=== PATIENT | female | born 1995 | race Caucasian/White ===

== ENCOUNTER 2020-01-11 17:32 | Emergency (ER) | payer BC ==
--- NOTE | 2020-01-11 18:21 | ER Document Report ---
ED General - General Chief Complaint: Diarrhea Stated Complaint: COUGH Time Seen by Provider: 01/11/20 17:52 Mode of Arrival: Ambulatory Information source: Patient Notes: 01/11/20 17:56 - ED Nursing Note by CRISTÓBAL LINDQUIST Cortes Num: [id number] : 1995 Patient Age: 24 Patient presents to ED with c/o diarrhea since Thursday, as well as chills and a sore throat for the past 2 weeks. Patient was exposed to a positive covid person recently. Pt denies N/V. 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 Patient reports she has sore throat rhinorrhea nonproductive cough diarrhea nonbloody. She denies any mopped assist. She denies any nuchal rigidity or cephalgia. She denies any skin rash. She is here with her twin sons Elías and Giovanni. Both of the sons appear to have eye discharge and paroxysmal cough. They have rhinorrhea as well. Her 3-year-old daughter is at [facility] [place] at this time and she has diarrhea today as well. Patient has been told instructed to come to the ED because of the 2 sons with eye discharge and coronavirus potential. TRAVEL OUTSIDE OF THE [place] IN LAST 30 DAYS: No - HPI Onset: Last week Onset/Duration: Sudden, Persistent, Worse Quality of pain: Achy Severity: Mild Pain Level: 1 Associated symptoms: Nonproductive cough, Fever Exacerbated by: Coughing, Deep breathing Relieved by: Denies Similar symptoms previously: Yes Recently seen / treated by doctor: Yes - Related Data Allergies/Adverse Reactions: No Known Allergies Allergy (Verified 06/02/16 06:52) Home Medications: Avione Past Medical History - General Information source: Patient - Social History Smoking Status: Current Every Day Smoker Cigarette use (# per day): Yes Chew tobacco use (# tins/day): No Smoking Education Provided: Yes - Patient is a smokerand has a smoker's cough Frequency of alcohol use: None Drug Abuse: None Lives with: Family Family History: Reviewed & Not Pertinent Patient has suicidal ideation: No Patient has homicidal ideation: No Renal/ Medical History: Reports: Hx Ovarian Cysts. Denies: Hx Ectopic Past Surgical History: Reports: Hx Section - 2019, Hx Cholecystectomy - Immunizations Hx Diphtheria, Pertussis, Tetanus Vaccination: Yes Review of Systems - Review of Systems Constitutional: See HPI, Fever, Weakness EENT: See HPI, Throat pain Cardiovascular: No symptoms reported Respiratory: See HPI, Cough Gastrointestinal: No symptoms reported Genitourinary: No symptoms reported Female Genitourinary: No symptoms reported Musculoskeletal: No symptoms reported Skin: No symptoms reported Hematologic/Lymphatic: No symptoms reported Neurological/Psychological: No symptoms reported Physical Exam - Vital signs Vitals: Temp Pulse Resp BP Pulse Ox 98.8 F 91 16 121/87 H 97 01/11/20 17:43 01/11/20 17:43 01/11/20 17:43 01/11/20 17:43 01/11/20 17:43 Interpretation: Normal - General General appearance: Alert - HEENT Head: Normocephalic, Atraumatic Eyes: Normal Pupils: PERRL Mouth/Lips: Normal Mucous membranes: Normal Pharynx: Erythema, Tonsillar hypertrophy Neck: Normal - Respiratory Respiratory status: No respiratory distress Chest status: Nontender Breath sounds: Normal Chest palpation: Normal - Cardiovascular Rhythm: Regular - The patient has chosen to leave the facility against medical advice. The relevant issues have been reviewed and discussed with the patient and family at the bedside. At the time of this assessment there is no indication for involuntary commitment. The patient is alert, oriented, and able to express clearly their reasoning for not wanting to remain in the emergency department for further treatment. The patient is not clinically psychotic, intoxicated, and denies and suicidal ideation. Differential or suspected diagnoses based on medical screening exam: . The patient is aware of the concerning diagnoses and acknowledges understanding of the reasons for the following recommendations: The following recommendations/services were offered and refused: The followi ng risks were explained: , permanent disability, loss of function Clinical impression: Patient is competent to make decisions regarding the medical that is being offered. Heart sounds: Normal auscultation Murmur: No - Abdominal Inspection: Normal Distension: No distension Bowel sounds: Normal Tenderness: Nontender Organomegaly: No organomegaly - Rectal Hemorrhoids: Other - deferred - Genitourinary Bimanuel exam: Other - deferred - Back Back: Normal - Extremities General upper extremity: Normal inspection, Nontender, Normal color, Normal ROM, Normal temperature General lower extremity: Normal inspection, Nontender, Normal color, Normal ROM, Normal temperature, Normal weight bearing. No: Adeline's sign - Neurological Neuro grossly intact: Yes Cognition: Normal Orientation: AAOx4 Shirin Coma Scale Eye Opening: Spontaneous Hitchita Coma Scale Verbal: Oriented Shirin Coma Scale Motor: Obeys Commands Shirin Coma Scale Total: 15 Speech: Normal Motor strength normal: LUE, RUE, LLE, RLE Sensory: Normal - Psychological Associated symptoms: Normal affect - Skin Skin Temperature: Warm Skin Moisture: Dry Course - Vital Signs Vital signs: Temp Pulse Resp BP Pulse Ox 98.8 F 91 16 121/87 H 97 01/11/20 17:54 01/11/20 17:43 01/11/20 17:43 01/11/20 17:43 01/11/20 17:43 - Laboratory Result Diagrams: 01/11/20 18:49 01/11/20 18:49 Laboratory results interpreted by me: 01/11/20 18:53 Urine Protein 30 H Urine Blood SMALL H Ur Leukocyte Esterase TRACE H Critical Care Note - Critical Care Note Total time excluding time spent on procedures (mins): 60 Comments: I advised patient of pending coronavirus test and to self quarantine until this returns Discharge - Discharge Clinical Impression: Pharyngitis Qualifiers: Pharyngitis/tonsillitis etiology: unspecified etiology Qualified Code(s): J02.9 - Acute pharyngitis, unspecified URI (upper respiratory infection) Qualifiers: URI type: unspecified URI Qualified Code(s): J06.9 - Acute upper respiratory infection, unspecified Condition: Good Disposition: HOME, SELF-CARE Additional Instructions: You have pending coronavirus test and should self quarantine until these return. Take medicines as directed and wear a facemask in public and private. Take medicines as directed encourage fluids. Prescriptions: Benzonatate [Tessalon Perles 100 mg Capsule] 100 mg PO Q8HP PRN #40 capsule PRN Reason: Azithromycin [Zithromax 250 mg Tablet] 250 mg PO ASDIR PRN #6 tablet PRN Reason: Forms: Return to Work
[2020-01-11 19:15] LABS: ABSOLUTE EOSINOPHILS # (AUTO) 0.1 10^3/uL (0.0-0.6); ABSOLUTE LYMPHOCYTES (AUTO) 3.5 10^3/uL (0.5-4.7); ABSOLUTE MONOCYTES (AUTO) 0.6 10^3/uL (0.1-1.4); ABSOLUTE NEUT (AUTO) 4.5 10^3/uL (1.7-8.2); BASOPHILS % (AUTO) 0.1 % (0-2); HEMATOCRIT 39.7 % (36.0-47.0); HEMOGLOBIN 13.6 g/dL (12.0-15.5); LYMPHOCYTES % (AUTO) 40.5 % (13-45); MEAN CORPUSCULAR HEMOGLOBIN 30.7 pg (27.0-33.4); MEAN CORPUSCULAR HGB CONC 34.2 g/dL (32.0-36.0); MEAN CORPUSCULAR VOLUME 90 fl (80-97); MONOCYTES % (AUTO) 6.6 % (3-13); PLATELET COUNT 220 10^3/uL (150-450); RED BLOOD COUNT 4.43 10^6/uL (3.72-5.28); RED CELL DISTRIBUTION WIDTH 13.4 % (11.5-14.0); SEGMENTED NEUTROPHILS % (AUTO) 51.8 % (42-78); TOTAL CELLS COUNTED % (AUTO) 100 %; WHITE BLOOD COUNT 8.6 10^3/uL (4.0-10.5)
--- NOTE | 2020-01-11 19:17 | RADIOLOGY REPORT (SQ) ---
EXAM DESCRIPTION: CHEST SINGLE VIEW IMAGES COMPLETED DATE/TIME: 01/11/2020 6:41 pm REASON FOR STUDY: cough COMPARISON: None. EXAM PARAMETERS: NUMBER OF VIEWS: One view. TECHNIQUE: Single frontal radiographic view of the chest acquired. RADIATION DOSE: NA LIMITATIONS: None. FINDINGS: LUNGS AND PLEURA: No opacities, masses or pneumothorax. No pleural effusion. MEDIASTINUM AND HILAR STRUCTURES: No masses. Contour normal. HEART AND VASCULAR STRUCTURES: Heart normal in size. Normal vasculature. BONES: No acute findings. HARDWARE: None in the chest. OTHER: No other significant finding. IMPRESSION: NO ACUTE RADIOGRAPHIC FINDING IN THE CHEST. TECHNICAL DOCUMENTATION: JOB ID: [id number] 2010 [employer]- All Rights Reserved Reading location - IP/workstation name: [email or web address]
[2020-01-11 19:45] LABS: APPEARANCE,URINE SLIGHTLY-CLOUDY; BILIRUBIN,URINE NEGATIVE (NEGATIVE); COLOR,URINE YELLOW; GLUCOSE, URINE NEGATIVE (NEGATIVE); KETONES,URINE NEGATIVE (NEGATIVE); LEUKOCYTE ESTERASE,URINE TRACE (NEGATIVE); NITRITE,URINE NEGATIVE (NEGATIVE); PROTEIN,URINE 30 mg/dL (NEGATIVE); UROBILINOGEN,URINE NEGATIVE mg/dL (<2.0)
[2020-01-11 19:50] LABS: ALBUMIN 4.8 g/dL (3.5-5.0); ALKALINE PHOSPHATASE 65 U/L (38-126); ANION GAP 7 (5-19); ASPARTATE AMINO TRANSFERASE 29 U/L (14-36); BILIRUBIN,TOTAL 0.5 mg/dL (0.2-1.3); BLOOD UREA NITROGEN 10 mg/dL (7-20); CALCIUM 9.4 mg/dL (8.4-10.2); CARBON DIOXIDE 25 mmol/L (22-30); CHLORIDE 106 mmol/L (98-107); GLUCOSE 89 mg/dL (75-110); POTASSIUM 4.3 mmol/L (3.6-5.0); TOTAL PROTEIN 8.2 g/dL (6.3-8.2)
[2020-01-11] MEDS ORDERED: AZITHROMYCIN 250 MG TABLET PO ONE (20:50)
[2020-01-11 21:26] VITALS: BP 113/71
== END 2020-01-11 22:15 | disposition home or self-care (01) ==
LOC: ER 17:32
DX: J06.9 Acute upper respiratory infection, unspecified (principal); R19.7 Diarrhea, unspecified; J02.9 Acute pharyngitis, unspecified; J35.1 Hypertrophy of tonsils; J34.89 Other specified disorders of nose and nasal sinuses; R50.9 Fever, unspecified; R53.1 Weakness; F17.218 Nicotine dependence, cigarettes, with other nicotine-induced disorders; R05 Cough; Z79.899 Other long term (current) drug therapy; Z20.828 Contact with and (suspected) exposure to other viral communicable diseases
CPT/HCPCS: 99285; 36415; 87070; 87880; 85025; 87635; 81025; 80053; 81001; 71045; C9803

== ENCOUNTER 2020-01-27 12:39 | Emergency (ER) | payer BC ==
[2020-01-27 12:44] VITALS: BP 135/83
--- NOTE | 2020-01-27 12:51 | ER Document Report ---
ED Medical Screen (RME) - General Chief Complaint: Nausea/Vomiting Stated Complaint: NAUSEA,VOMITING,ABDOMINAL PAIN Time Seen by Provider: 01/27/20 12:40 Mode of Arrival: Ambulatory Information source: Patient Notes: 24-year-old female presented to ED for right pelvic pain. She states she went to the [facility] because that is where she goes for her ovarian cyst. This ovarian cyst is much more painful than her normal so the [facility] sent her to the emergency room to have her evaluated for a ruptured ectopic because she has not had a test as yet. She is due soon for her menstrual cycle. She states she does smoke 1/2 pack a day does not drink or use any illicit drugs. She has had a cholecystectomy. She has a history of ovarian cyst and she has had a cystoscopy. Patient is alert oriented respirations regular nonlabored speaking in full sentences. She has gone straight to ultrasound and then she will have a blood and urine done. I have greeted and performed a rapid initial assessment of this patient. A comprehensive ED assessment and evaluation of the patient, analysis of test results and completion of medical decision making process will be conducted by an additional ED providers. TRAVEL OUTSIDE OF THE [place] IN LAST 30 DAYS: No - Related Data Allergies/Adverse Reactions: No Known Allergies Allergy (Verified 06/02/16 06:52) Past Medical History Renal/ Medical History: Reports: Hx Ovarian Cysts. Denies: Hx Ectopic Past Surgical History: Reports: Hx Section - 2019, Hx Cholecystectomy - Immunizations Hx Diphtheria, Pertussis, Tetanus Vaccination: Yes Physical Exam - Vital signs Vitals: Temp Pulse Resp BP Pulse Ox 98.7 F 99 18 135/83 H 100 01/27/20 12:42 01/27/20 12:42 01/27/20 12:42 01/27/20 12:42 01/27/20 12:42 Course - Vital Signs Vital signs: Temp Pulse Resp BP Pulse Ox 98.7 F 99 18 135/83 H 100 01/27/20 12:42 01/27/20 12:42 01/27/20 12:42 01/27/20 12:42 01/27/20 12:42
[2020-01-27 13:24] LABS: ABSOLUTE EOSINOPHILS # (AUTO) 0.1 10^3/uL (0.0-0.6); ABSOLUTE LYMPHOCYTES (AUTO) 2.6 10^3/uL (0.5-4.7); ABSOLUTE MONOCYTES (AUTO) 0.4 10^3/uL (0.1-1.4); ABSOLUTE NEUT (AUTO) 4.6 10^3/uL (1.7-8.2); BASOPHILS % (AUTO) 0.2 % (0-2); EOSINOPHILS % (AUTO) 1.3 % (0-6); HEMATOCRIT 37.4 % (36.0-47.0); HEMOGLOBIN 12.8 g/dL (12.0-15.5); LYMPHOCYTES % (AUTO) 33.9 % (13-45); MEAN CORPUSCULAR HEMOGLOBIN 30.8 pg (27.0-33.4); MEAN CORPUSCULAR HGB CONC 34.3 g/dL (32.0-36.0); MEAN CORPUSCULAR VOLUME 90 fl (80-97); MONOCYTES % (AUTO) 5.3 % (3-13); PLATELET COUNT 227 10^3/uL (150-450); RED BLOOD COUNT 4.17 10^6/uL (3.72-5.28); RED CELL DISTRIBUTION WIDTH 13.9 % (11.5-14.0); SEGMENTED NEUTROPHILS % (AUTO) 59.3 % (42-78); TOTAL CELLS COUNTED % (AUTO) 100 %; WHITE BLOOD COUNT 7.7 10^3/uL (4.0-10.5)
[2020-01-27 13:31] LABS: APPEARANCE,URINE CLOUDY; BILIRUBIN,URINE NEGATIVE (NEGATIVE); GLUCOSE, URINE NEGATIVE (NEGATIVE); KETONES,URINE NEGATIVE (NEGATIVE); LEUKOCYTE ESTERASE,URINE MODERATE (NEGATIVE); NITRITE,URINE NEGATIVE (NEGATIVE); PROTEIN,URINE 30 mg/dL (NEGATIVE); URINE SPECIFIC GRAVITY 1.029; UROBILINOGEN,URINE NEGATIVE mg/dL (<2.0)
[2020-01-27 13:32] LABS: COLOR,URINE YELLOW
[2020-01-27 13:42] LABS: ALBUMIN 4.3 g/dL (3.5-5.0); ALKALINE PHOSPHATASE 54 U/L (38-126); ANION GAP 8 (5-19); ASPARTATE AMINO TRANSFERASE 21 U/L (14-36); BILIRUBIN,TOTAL 0.4 mg/dL (0.2-1.3); BLOOD UREA NITROGEN 6 mg/dL (7-20); CALCIUM 9.2 mg/dL (8.4-10.2); CARBON DIOXIDE 24 mmol/L (22-30); CHLORIDE 105 mmol/L (98-107); GLUCOSE 90 mg/dL (75-110); POTASSIUM 4.2 mmol/L (3.6-5.0); TOTAL PROTEIN 7.6 g/dL (6.3-8.2)
--- NOTE | 2020-01-27 14:12 | RADIOLOGY REPORT (SQ) ---
EXAM DESCRIPTION: U/S NON OB PEL TV W/DOPPLER IMAGES COMPLETED DATE/TIME: 01/27/2020 2:02 pm REASON FOR STUDY: Symptoms consistent with ectopic has not done preg COMPARISON: None. TECHNIQUE: Dynamic and static grayscale images acquired of the pelvis via transvaginal approach and recorded on PACS. Additional selected color Doppler and spectral images recorded. LIMITATIONS: None. FINDINGS: UTERUS: Contour normal. No mass. ENDOMETRIAL STRIPE: No focal or generalized thickening. No masses. CERVIX: No nabothian cysts. RIGHT OVARY AND DOPPLER: Normal size. No worrisome masses. Normal arterial vascular flow without evid ence for torsion. LEFT OVARY AND DOPPLER: Ovary not visualized due to poor acoustic window. FREE FLUID: None noted. OTHER: No other significant finding. MEASUREMENTS: UTERUS: 3.0 x 3.8 x 7.8 cm. ENDOMETRIAL STRIPE: 5 mm. RIGHT OVARY: 1.1 x 1.4 x 2.4 cm. LEFT OVARY: Not visualized. IMPRESSION: LEFT OVARY NOT VISUALIZED DUE TO POOR ACOUSTIC WINDOW. OTHERWISE NORMAL TRANSVAGINAL PE LVIC ULTRASOUND. TECHNICAL DOCUMENTATION: JOB ID: [id number] [employer] All Rights Reserved Rev-11/20 Reading location - IP/workstation name: [email or web address]
--- NOTE | 2020-01-27 15:12 | ER Document Report ---
ED General - General Chief Complaint: Pelvic Pain Stated Complaint: NAUSEA,VOMITING,ABDOMINAL PAIN Time Seen by Provider: 01/27/20 12:40 Mode of Arrival: Ambulatory Notes: Patient is a 24-year-old white female with a history of right ovarian cyst in the past with prior cyst removal by [facility] who presents today with a chief complaint of pelvic pain, right lower quadrant pain and right back pain. She states this began yesterday. States it initially felt as though she was having some cramping in relation to starting her menstrual cycle next week which she reports is normal. She states that she had some scant early bleeding but reports that this pain is more severe than prior pains from her previous ovarian cyst. She called her [facility] who felt that this was worrisome for ectopic. The patient states that she is sure she is not but her OB told her to be better to come here and have everything evaluated in one place. She denies any vaginal discharge. Denies any urinary complaints but admits to having a "kinked urethra". States that she is prone to urinary tract infections. She also admits to having a chronic lower back injury with chronic lower back pain. She states this pain is stabbing in nature. Also reports of chronic sciatica on the right side. She states she has more tenderness than normal to the right lower back. Denies any visible blood in urine. Denies any other prior abdominal surgeries. No fevers. TRAVEL OUTSIDE OF THE [place] IN LAST 30 DAYS: No - Related Data Allergies/Adverse Reactions: No Known Allergies Allergy (Verified 06/02/16 06:52) Past Medical History - General Information source: Patient - Social History Smoking Status: Current Every Day Smoker Chew tobacco use (# tins/day): No Frequency of alcohol use: None Drug Abuse: None Family History: Reviewed & Not Pertinent Patient has homicidal ideation: No Renal/ Medical History: Reports: Hx Ovarian Cysts. Denies: Hx Ectopic Past Surgical History: Reports: Hx Section - 2019, Hx Cholecystectomy - Immunizations Hx Diphtheria, Pertussis, Tetanus Vaccination: Yes Review of Systems - Review of Systems Notes: As per HPI otherwise negative Physical Exam - Vital signs Vitals: Temp Pulse Resp BP Pulse Ox 98.7 F 99 18 135/83 H 100 01/27/20 12:42 01/27/20 12:42 01/27/20 12:42 01/27/20 12:42 01/27/20 12:42 - General General appearance: Appears well, Alert In distress: None - Respiratory Respiratory status: No respiratory distress Chest status: Nontender Breath sounds: Normal Chest palpation: Normal - Cardiovascular Rhythm: Regular Heart sounds: Normal auscultation - Abdominal Inspection: Normal Distension: No distension Bowel sounds: Normal Tenderness: Tender - Right upper quadrant and right lower quadrant, Other - Status post lap meet - Back Back: Tender - Tender to palpation right lower lumbar region. Normal straight leg raise bilaterally. 2+ DP/PT bilaterally. Negative obturator and psoas. - Neurological Neuro grossly intact: Yes Cognition: Normal Orientation: AAOx4 - Psychological Associated symptoms: Normal affect, Normal mood - Skin Skin Temperature: Warm Skin Moisture: Dry Skin Color: Normal Course - Re-evaluation Re-evalutation: 01/27/20 15:11 Ultrasound was equivocal for the side the patient's having symptoms, the right ovary could not be visualized. The left appeared normal per radiologist. Her lab work is largely unremarkable and her hCG was negative. Will obtain CT scan for further evaluation of patient's presentation. 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 She states that the Toradol did not help much with the pain however she notes that she has chronic issues with pain and has tried several medications including neuroleptics, opioids and SNRIs without any significant improvement. There is no acute emergent findings found here today on work-up to indicate further stay in the emergency department however the patient also notes that she can no longer stay for further pain management or care. We will treat her UTI outpatient she will call her doctor on Thursday for continued care management. She is aware that she is free to return here any time to continue her care. Counseled her at length regarding the importance of outpatient follow-up and advised that she return here or any ER immediately with any new, persistent or worsening symptoms. She verbalized understood and agreed. - Vital Signs Vital signs: Temp Pulse Resp BP Pulse Ox 98.7 F 99 18 135/83 H 100 01/27/20 12:42 01/27/20 12:42 01/27/20 12:42 01/27/20 12:42 01/27/20 12:42 - Laboratory Result Diagrams: 01/27/20 13:09 01/27/20 13:09 Laboratory results interpreted by me: 01/27/20 01/27/20 13:09 13:09 BUN 6 L Urine Protein 30 H Urine Blood MODERATE H Ur Leukocyte Esterase MODERATE H Discharge - Discharge Clinical Impression: Pelvic pain UTI (urinary tract infection) Qualifiers: Urinary tract infection type: site unspecified Hematuria presence: with hematuria Qualified Code(s): N39.0 - Urinary tract infection, site not specified; R31.9 - Hematuria, unspecified Condition: Stable Disposition: HOME, SELF-CARE Instructions: Urinary Tract Infection ([facility]), Pelvic Pain ([facility]) Additional Instructions: Follow-up with your regular doctor in 2 to 3 days for reevaluation. Return here or any ER immediately with any new, persistent or worsening symptoms. Prescriptions: Sulfamethoxazole/Trimethoprim [Bactrim Ds Tablet] 1 each PO BID #20 tablet
--- NOTE | 2020-01-27 15:39 | RADIOLOGY REPORT (SQ) ---
EXAM DESCRIPTION: CT ABD/PELVIS WITH IV ONLY IMAGES COMPLETED DATE/TIME: 01/27/2020 3:27 pm REASON FOR STUDY: RLQ pain COMPARISON: None. TECHNIQUE: CT scan of the abdomen and pelvis performed using helical scanning technique with dynamic intravenous contrast injection. No oral contrast. Images reviewed with lung, soft tissue, and bone windows. Reconstructed coronal and sagittal MPR images reviewed. Delayed images for evaluation of the urinary system also acquired. All images stored on PACS. All CT scanners at this facility use dose modulation, iterative reconstruction, and/or weight based d osing when appropriate to reduce radiation dose to as low as reasonably achievable (ALARA). [facility]: Dose Right [facility]: CareDose [facility]: Dose Right [facility]: Teradose 4D [facility]: Broadcast Grade [employer] Graphics Display System CONTRAST TYPE AND DOSE: contrast/concentration: Isovue 350.00 mmol/ml; Total Contrast Delivered: 98. 0 ml; Total Saline Delivered: 75.8 ml RENAL FUNCTION: BUN 6 creatinine 0.64. RADIATION DOSE: CT Rad equipment meets quality standard of care and radiation dose reduction techniq ues were employed. CTDIvol: 7.9 - 11.1 mGy. DLP: 1161 mGy-cm.. LIMITATIONS: None. FINDINGS: LOWER CHEST: No significant findings. No nodules or infiltrates. LIVER: Normal size. No masses. No dilated ducts. SPLEEN: Normal size. No focal lesions. PANCREAS: No masses. No significant calcifications. No adjacent inflammation or peripancreatic fluid collections. Pancreatic duct not dilated. GALLBLADDER: Surgically absent. ADRENAL GLANDS: No significant masses or asymmetry. RIGHT KIDNEY AND URETER: No solid masses. No significant calcifications. No hydronephrosis or hyd roureter. LEFT KIDNEY AND URETER: No solid masses. No significant calcifications. No hydronephrosis or hydr oureter. AORTA AND VESSELS: No aneurysm. No dissection. Renal arteries, SMA, celiac without stenosis. RETROPERITONEUM: No retroperitoneal adenopathy, hemorrhage or masses. BOWEL AND PERITONEAL CAVITY: No masses or inflammatory changes. No free fluid or peritoneal masses. APPENDIX: Normal. PELVIS: No mass. No free fluid. Normal bladder. ABDOMINAL WALL: No masses. No hernias. BONES: No significant or acute findings. OTHER: No other significant finding. IMPRESSION: NO SIGNIFICANT OR ACUTE FINDING IN THE ABDOMEN OR PELVIS ON CT SCAN WITH IV CONTRAST. TECHNICAL DOCUMENTATION: JOB ID: [id number] Quality ID # [id number]: Final reports with documentation of one or more dose reduction techniques (e.g., Au tomated exposure control, adjustment of the mA and/or kV according to patient size, use of iterative reconstruction technique) 2010 [employer]- All Rights Reserved Reading location - IP/workstation name: [email or web address]
[2020-01-27] MEDS ORDERED: CEFTRIAXONE 1 GM/D5W RTU 1 GM/50 ML RTUPB IV ONE (16:25)
[2020-01-27] MEDS ORDERED: NORMAL SALINE 500 ML IV ONE (16:29)
[2020-01-27] MEDS ORDERED: KETOROLAC TROMETHAMINE INJ/PF 30 MG/1 ML SDV IV ONE (16:29)
== END 2020-01-27 18:06 | disposition home or self-care (01) ==
LOC: ER 12:39
DX: N39.0 Urinary tract infection, site not specified (principal); R31.9 Hematuria, unspecified; R10.2 Pelvic and perineal pain; R10.11 Right upper quadrant pain; R10.31 Right lower quadrant pain; R11.2 Nausea with vomiting, unspecified; M54.9 Dorsalgia, unspecified; M54.5 Low back pain; F17.200 Nicotine dependence, unspecified, uncomplicated; Z98.890 Other specified postprocedural states
CPT/HCPCS: 99284; 96375; 96365; 36415; 84702; 85025; 80053; 81001; 76830; 93976; 74177; J1885; J7040; J0696

== ENCOUNTER 2020-02-01 11:41 | Emergency (ER) | payer BC ==
--- NOTE | 2020-02-01 11:51 | ER Document Report ---
ED Medical Screen (RME) - General Chief Complaint: Flank Pain Stated Complaint: RIGHT FLANK PAIN Time Seen by Provider: 02/01/20 11:50 Notes: This patient is a returned from a visit 3 days ago she has continued right lower quadrant pain she had a transvaginal ultrasound CAT scan with which were negative at that point of time but she still has discomfort right lower abdomen TRAVEL OUTSIDE OF THE [place] IN LAST 30 DAYS: No - Related Data Allergies/Adverse Reactions: No Known Allergies Allergy (Verified 06/02/16 06:52) Past Medical History Renal/ Medical History: Reports: Hx Ovarian Cysts. Denies: Hx Ectopic Past Surgical History: Reports: Hx Section - 2019, Hx Cholecystectomy - Immunizations Hx Diphtheria, Pertussis, Tetanus Vaccination: Yes Physical Exam - Vital signs Vitals: Temp Pulse Resp BP Pulse Ox 98.6 F 81 18 106/79 99 02/01/20 11:45 02/01/20 11:45 02/01/20 11:45 02/01/20 11:45 02/01/20 11:45 Course - Vital Signs Vital signs: Temp Pulse Resp BP Pulse Ox 98.6 F 81 18 106/79 99 02/01/20 11:45 02/01/20 11:45 02/01/20 11:45 02/01/20 11:45 02/01/20 11:45
[2020-02-01 12:21] LABS: ABSOLUTE EOSINOPHILS # (AUTO) 0.1 10^3/uL (0.0-0.6); ABSOLUTE LYMPHOCYTES (AUTO) 2.1 10^3/uL (0.5-4.7); ABSOLUTE MONOCYTES (AUTO) 0.5 10^3/uL (0.1-1.4); ABSOLUTE NEUT (AUTO) 3.9 10^3/uL (1.7-8.2); BASOPHILS % (AUTO) 0.2 % (0-2); EOSINOPHILS % (AUTO) 1.7 % (0-6); HEMATOCRIT 40.9 % (36.0-47.0); HEMOGLOBIN 13.9 g/dL (12.0-15.5); LYMPHOCYTES % (AUTO) 32.2 % (13-45); MEAN CORPUSCULAR HEMOGLOBIN 30.6 pg (27.0-33.4); MEAN CORPUSCULAR HGB CONC 33.8 g/dL (32.0-36.0); MEAN CORPUSCULAR VOLUME 90 fl (80-97); MONOCYTES % (AUTO) 7.1 % (3-13); PLATELET COUNT 243 10^3/uL (150-450); RED BLOOD COUNT 4.53 10^6/uL (3.72-5.28); RED CELL DISTRIBUTION WIDTH 14.3 % (11.5-14.0); SEGMENTED NEUTROPHILS % (AUTO) 58.8 % (42-78); TOTAL CELLS COUNTED % (AUTO) 100 %; WHITE BLOOD COUNT 6.7 10^3/uL (4.0-10.5)
[2020-02-01 12:29] LABS: APPEARANCE,URINE SLIGHTLY-CLOUDY; BILIRUBIN,URINE NEGATIVE (NEGATIVE); COLOR,URINE YELLOW; GLUCOSE, URINE NEGATIVE (NEGATIVE); KETONES,URINE NEGATIVE (NEGATIVE); LEUKOCYTE ESTERASE,URINE SMALL (NEGATIVE); NITRITE,URINE NEGATIVE (NEGATIVE); PROTEIN,URINE NEGATIVE (NEGATIVE); URINE SPECIFIC GRAVITY 1.021; UROBILINOGEN,URINE NEGATIVE mg/dL (<2.0)
[2020-02-01 12:37] LABS: ALBUMIN 4.8 g/dL (3.5-5.0); ALKALINE PHOSPHATASE 49 U/L (38-126); ANION GAP 9 (5-19); ASPARTATE AMINO TRANSFERASE 21 U/L (14-36); BILIRUBIN,TOTAL 0.6 mg/dL (0.2-1.3); BLOOD UREA NITROGEN 7 mg/dL (7-20); CALCIUM 9.8 mg/dL (8.4-10.2); CARBON DIOXIDE 24 mmol/L (22-30); CHLORIDE 105 mmol/L (98-107); GLUCOSE 88 mg/dL (75-110); POTASSIUM 4.9 mmol/L (3.6-5.0); TOTAL PROTEIN 8.2 g/dL (6.3-8.2)
[2020-02-01 13:39] VITALS: BP 108/70
== END 2020-02-01 13:37 | disposition left against medical advice (07) ==
LOC: ER 11:41
DX: Z53.20 Procedure and treatment not carried out because of patient's decision for unspecified reasons (principal); R10.31 Right lower quadrant pain
CPT/HCPCS: 36415; 80053; 81001; 83690; 85025; 99281

== ENCOUNTER 2020-04-04 21:11 | Emergency (ER) | payer BC ==
[2020-04-04 21:35] VITALS: BP 115/81
[2020-04-04] MEDS ORDERED: METHYLPREDNISOLONE INJ 125 MG/2 ML SDV IM ONE (22:45)
[2020-04-04] MEDS ORDERED: ACETAMINOPHEN 325 MG TABLET PO ONE (22:45)
--- NOTE | 2020-04-04 23:42 | RADIOLOGY REPORT (SQ) ---
EXAM DESCRIPTION: XR FINGERS COMPLETED DATE/TME: 04/04/2020 22:45 CLINICAL HISTORY: 24 years, Female, right thumb pain COMPARISON: None. NUMBER OF VIEWS: 3 TECHNIQUE: 3 views right thumb LIMITATIONS: None. FINDINGS: Negative for fracture or dislocation. Soft tissues are unremarkable IMPRESSION: Negative exam copyright 2011 [employer]- All Rights Reserved
--- NOTE | 2020-04-04 23:55 | ER Document Report ---
ED Medical Screen (RME) - General Chief Complaint: Finger Injury Time Seen by Provider: 04/04/20 22:39 Mode of Arrival: Ambulatory Information source: Patient Notes: HPI; 24-year-old female presents to the emergency room with sudden onset of right thumb itching while walking her dog earlier this evening. She states she applied some hydrocortisone cream without relief. She then started noticed some erythema and swelling to the thumb. Tried taking Benadryl without relief. Does not recall any injury while walking her dog. Patient states she did not notice any possible bites or stings to her thumb. Patient is right-handed. PE: Alert and oriented x3. Mild distress noted. Lungs: Clear to auscultation without rales, rhonchi, wheezes. Heart: Regular rate rhythm without murmurs, rubs, gallops. There is erythema noted at the base of the right thumb with no obvious puncture wounds noted. There are some slightly raised vesicles that are warm and tender to palpation without no active discharge or draining noted. Full range of motion without difficulty. Positive right radial pulse. Capillary refill less than 3 seconds. I have greeted and performed a rapid initial assessment of this patient. A comp rehensive ED assessment and evaluation of the patient, analysis of test results and completion of the medical decision making process will be conducted by additional ED providers. I have specifically instructed the patient or family members with the patient to immediately return to any nursing staff should anything change in the patient's condition or with their chief complaint. TRAVEL OUTSIDE OF THE [place] IN LAST 30 DAYS: No - Related Data Allergies/Adverse Reactions: No Known Allergies Allergy (Verified 06/02/16 06:52) Past Medical History Renal/ Medical History: Reports: Hx Ovarian Cysts. Denies: Hx Ectopic Past Surgical History: Reports: Hx Section - 2019, Hx Cholecystectomy - Immunizations Hx Diphtheria, Pertussis, Tetanus Vaccination: Yes Physical Exam - Vital signs Vitals: Temp Pulse Resp BP Pulse Ox 98.2 F 90 16 115/81 98 04/04/20 21:34 04/04/20 21:34 04/04/20 21:34 04/04/20 21:34 04/04/20 21:34 Course - Vital Signs Vital signs: Temp Pulse Resp BP Pulse Ox 98.2 F 90 16 115/81 98 04/04/20 21:34 04/04/20 21:34 04/04/20 21:34 04/04/20 21:34 04/04/20 21:34
== END 2020-04-05 01:00 | disposition left against medical advice (07) ==
LOC: ER 21:11
DX: Z53.20 Procedure and treatment not carried out because of patient's decision for unspecified reasons (principal); M79.644 Pain in right finger(s); M79.89 Other specified soft tissue disorders
CPT/HCPCS: 99281; 96372; 73140; J2930

== ENCOUNTER 2020-04-05 09:39 | Emergency (ER) | payer BC ==
--- NOTE | 2020-04-05 10:20 | ER Document Report ---
ED General - General Chief Complaint: Numbness Stated Complaint: ARM NUMBNESS Time Seen by Provider: 04/05/20 10:19 Primary Care Provider: [facility] [Provider Group] - Follow up as needed TRAVEL OUTSIDE OF THE [place] IN LAST 30 DAYS: No - HPI Notes: Patient is a 24-year-old female who presents with chest tightness and extremity numbness and tingling that began earlier this morning at 7 AM. Patient was seen last night in the ED for right thumb swelling. Patient left AMA before her x- ray had resulted. X-ray was negative with no signs of fracture or dislocation. Patient reports numbness from her hands extending to her elbows bilaterally and tingling to her bilateral thighs. She endorses an improvement in her right thumb pain and swelling after receiving a steroid injection yesterday. She reports right temporal headache, but denies shortness of breath, nausea, vomiting, abdominal pain, fever, diarrhea, and dysuria. Patient has a hx of panic attacks but states they are usually much worse than her current symptoms. Her last panic attack was four days ago. She normally is on anxiety medication but has not had a refill as she has not seen primary care in over a year. Patient has an P[facility] appointment [facility] on April 24. She is a current everyday smoker who smokes less than 0.5 ppd. She denies alcohol and recreational drug use. She has a hx of right sided sciatica, L5 disc disease and . - Related Data Allergies/Adverse Reactions: meloxicam [From Mobic] Allergy (Verified 04/05/20 09:56) Anaphylaxis Past Medical History - General Information source: Patient - Social History Smoking Status: Current Every Day Smoker Chew tobacco use (# tins/day): No Frequency of alcohol use: None Drug Abuse: None Family History: Reviewed & Not Pertinent Renal/ Medical History: Reports: Hx Ovarian Cysts. Denies: Hx Ectopic Past Surgical History: Reports: Hx Section - 2019, Hx Cholecystectomy - Immunizations Hx Diphtheria, Pertussis, Tetanus Vaccination: Yes Review of Systems - Review of Systems Constitutional: No symptoms reported EENT: No symptoms reported Cardiovascular: See HPI Respiratory: No symptoms reported Gastrointestinal: No symptoms reported Genitourinary: No symptoms reported Female Genitourinary: No symptoms reported Musculoskeletal: No symptoms reported Skin: No symptoms reported Hematologic/Lymphatic: No symptoms reported Neurological/Psychological: See HPI Physical Exam - Vital signs Vitals: Temp Pulse Resp BP Pulse Ox 98.1 F 105 H 18 117/80 96 04/05/20 09:47 04/05/20 09:47 04/05/20 09:47 04/05/20 09:47 04/05/20 09:47 - Notes Notes: PHYSICAL EXAMINATION: VITALS: Vitals reviewed and within normal limits. GENERAL: Well-appearing, well-nourished and in no acute distress. HEAD: Atraumatic, normocephalic. EYES: Pupils equal round and reactive to light, extraocular movements intact, sclera anicteric, conjunctiva are normal. ENT: nares patent, oropharynx clear without exudates. Moist mucous membranes. NECK: Normal range of motion, supple without lymphadenopathy. LUNGS: Breath sounds clear to auscultation bilaterally and equal. No wheezes rales or rhonchi. HEART: Regular rate and rhythm without murmurs. ABDOMEN: Soft, nontender, normoactive bowel sounds. No guarding, no rebound. No masses appreciated. EXTREMITIES: Right thumb minimally swollen with no erythema. Tender to palpation with ROM limited secondary to pain. Normal range of motion, no pitting or edema of all other extremities. No cyanosis. NEUROLOGICAL: No focal neurological deficits. Moves all extremities sp ontaneously and on command. Sharp and dull sensation intact to BUE and BLE. Subjective decreased sensation to the bilateral hands and thighs. PSYCH: Normal mood, normal affect. SKIN: Warm, Dry, normal turgor, no rashes or lesions noted. Course - Re-evaluation Re-evalutation: Patient is a 24-year-old female with a hx of anxiety and panic attacks who presents with chest tightness and extremity numbness and tingling that began earlier this morning at 7 AM. Vital signs are within normal limits. On exam, sensation is intact to sharp and dull touch in her bilateral upper and lower extremities. Subjective decreased sensation to her bilateral hands and thighs. Right thumb is minimally swollen with no erythema or cellulitic changes. Cardiac work-up negative which included a normal EKG and negative troponin. TSH low at 0.14. Glucose of 159. UA shows elevated glucose >500, protein 30, ketones 20, and small blood. Elevated glucose and serum and urine concerning, but consistent with steroid injection she received yesterday in the ED. I will order a hemoglobin A1c and contact the patient if abnormal. Work-up consistent with TSH deficiency and possible hyperthyroidism. I discussed the work-up with the patient and she reports a history of hyperthyroidism. She states that she was diagnosed over a year and a half ago and was told she had a mass. It was determined to be noncancerous, but no surgery or further treatment was done. Patient states she has not been seen by primary Care in over a year but has an appointment at the [facility] in 3 weeks. Patient will be discharged home with instructions to follow-up with her primary care at her scheduled appointment concerning her TSH deficiency, as well as, her anxiety medication slightly to be refilled. Detailed return precautions given. Patient is in agreement with plan. - Vital Signs Vital signs: Temp Pulse Resp BP Pulse Ox 98.1 F 78 15 117/74 96 04/05/20 09:47 04/05/20 13:00 04/05/20 13:01 04/05/20 13:00 04/05/20 13:01 - Laboratory Result Diagrams: 04/05/20 11:07 04/05/20 11:07 Laboratory results interpreted by me: 04/05/20 04/05/20 04/05/20 10:54 11:07 11:07 Lymph % (Auto) 7.7 L Cook % (Auto) 1.0 L Seg Neutrophils % 91.3 H Glucose 159 H TSH Urine Protein 30 H Urine Glucose (UA) >=500 H Urine Ketones 20 H Urine Blood SMALL H 04/05/20 11:07 Lymph % (Auto) Cook % (Auto) Seg Neutrophils % Glucose TSH 0.14 L Urine Protein Urine Glucose (UA) Urine Ketones Urine Blood - EKG Interpretation by Me Additional EKG results interpreted by me: Sinus rhythm with a rate of 72. QTc 443. Normal axis. No T wave inversions or ST segment changes in consecutive leads. Discharge - Discharge Clinical Impression: TSH (thyroid-stimulating hormone deficiency), Glycosuria Chest pain Qualifiers: Chest pain type: unspecified Qualified Code(s): R07.9 - Chest pain, unspecified Condition: Stable Disposition: HOME, SELF-CARE Additional Instructions: Hyperthyroidism The thyroid gland is found in the front of the neck. It produces thyroid hormone. Thyroid hormone regulates the metabolism. Hyperthyroidism means the gland is producing too much thyroid hormone. This "turns up the thermostat" too high, causing weight loss, nervousness, rapid heartbeat, and weakness. Unless it's caused by taking thyroid pills, hyperthyroidism must be investigated. The problem may be in the pituitary gland or the thyroid gland itself. Medication can control the symptoms while long-term treatment is begun. The exact treatment depends on the cause of your hyperthyroidism and on its severity. Contact the doctor or return if you change for the worse -- for example, palpitations, severe nervousness, chest pain, shortness of breath, worsening weakness or lightheadedness. Referrals: [facility] [Provider Group] - Follow up as needed
--- NOTE | 2020-04-05 11:17 | RADIOLOGY REPORT (SQ) ---
EXAM DESCRIPTION: CHEST SINGLE VIEW IMAGES COMPLETED DATE/TIME: 04/05/2020 11:07 am REASON FOR STUDY: chest tightness COMPARISON: 01/11/2020 EXAM PARAMETERS: NUMBER OF VIEWS: One view. TECHNIQUE: Single frontal radiographic view of the chest acquired. RADIATION DOSE: NA LIMITATIONS: None. FINDINGS: LUNGS AND PLEURA: No opacities, masses or pneumothorax. No pleural effusion. MEDIASTINUM AND HILAR STRUCTURES: No masses. Contour normal. HEART AND VASCULAR STRUCTURES: Heart normal in size. Normal vasculature. BONES: No acute findings. HARDWARE: None in the chest. OTHER: No other significant finding. IMPRESSION: NO ACUTE RADIOGRAPHIC FINDING IN THE CHEST. TECHNICAL DOCUMENTATION: JOB ID: [id number] 2010 [employer]- All Rights Reserved Reading location - IP/workstation name: [email or web address]
[2020-04-05 11:23] LABS: ABSOLUTE LYMPHOCYTES (AUTO) 0.6 10^3/uL (0.5-4.7); ABSOLUTE MONOCYTES (AUTO) 0.1 10^3/uL (0.1-1.4); ABSOLUTE NEUT (AUTO) 7.2 10^3/uL (1.7-8.2); HEMATOCRIT 37.9 % (36.0-47.0); HEMOGLOBIN 13.2 g/dL (12.0-15.5); LYMPHOCYTES % (AUTO) 7.7 % (13-45); MEAN CORPUSCULAR HEMOGLOBIN 31.5 pg (27.0-33.4); MEAN CORPUSCULAR HGB CONC 34.8 g/dL (32.0-36.0); MEAN CORPUSCULAR VOLUME 91 fl (80-97); PLATELET COUNT 210 10^3/uL (150-450); RED BLOOD COUNT 4.18 10^6/uL (3.72-5.28); RED CELL DISTRIBUTION WIDTH 13.3 % (11.5-14.0); SEGMENTED NEUTROPHILS % (AUTO) 91.3 % (42-78); TOTAL CELLS COUNTED % (AUTO) 100 %; WHITE BLOOD COUNT 7.9 10^3/uL (4.0-10.5)
[2020-04-05 11:31] LABS: APPEARANCE,URINE SLIGHTLY-CLOUDY; BILIRUBIN,URINE NEGATIVE (NEGATIVE); COLOR,URINE YELLOW; GLUCOSE, URINE >=500 mg/dL (NEGATIVE); KETONES,URINE 20 mg/dL (NEGATIVE); LEUKOCYTE ESTERASE,URINE NEGATIVE (NEGATIVE); NITRITE,URINE NEGATIVE (NEGATIVE); PROTEIN,URINE 30 mg/dL (NEGATIVE); URINE SPECIFIC GRAVITY 1.032; UROBILINOGEN,URINE NEGATIVE mg/dL (<2.0)
[2020-04-05 11:46] LABS: ALBUMIN 4.6 g/dL (3.5-5.0); ALKALINE PHOSPHATASE 57 U/L (38-126); ANION GAP 12 (5-19); ASPARTATE AMINO TRANSFERASE 22 U/L (14-36); BILIRUBIN,DIRECT 0.3 mg/dL (0.0-0.4); BILIRUBIN,TOTAL 0.6 mg/dL (0.2-1.3); BLOOD UREA NITROGEN 8 mg/dL (7-20); CALCIUM 9.9 mg/dL (8.4-10.2); CARBON DIOXIDE 22 mmol/L (22-30); CHLORIDE 106 mmol/L (98-107); GLUCOSE 159 mg/dL (75-110); POTASSIUM 4.2 mmol/L (3.6-5.0); TOTAL PROTEIN 7.4 g/dL (6.3-8.2)
--- NOTE | 2020-04-05 12:21 | EKG REPORT ---
SEVERITY:- OTHERWISE NORMAL ECG - SINUS ARRHYTHMIA, RATE [id number] : Confirmed by: Mo Amaya MD 05-Apr-2020 12:21:10
[2020-04-05 13:04] VITALS: BP 117/74
== END 2020-04-05 14:01 | disposition home or self-care (01) ==
LOC: ER 09:39
DX: R07.89 Other chest pain (principal); R81 Glycosuria; R79.89 Other specified abnormal findings of blood chemistry; R51.9 Headache, unspecified; R31.9 Hematuria, unspecified; M79.89 Other specified soft tissue disorders; F17.200 Nicotine dependence, unspecified, uncomplicated; Z86.59 Personal history of other mental and behavioral disorders; Z87.892 Personal history of anaphylaxis; Z88.8 Allergy status to other drugs, medicaments and biological substances
CPT/HCPCS: 36415; 71045; 80053; 81001; 83036; 84443; 84484; 85025; 93005; 93010; 99285